=== PATIENT | male | born 1945 | race Caucasian/White ===

== ENCOUNTER 2017-06-03 17:54 | Inpatient (IN) ==
[2017-06-03 18:48] LABS: MANUAL DIFF NEEDED? NO
[2017-06-03 18:49] LABS: ALLEN TEST YES; BLOOD TYPE ARTERIAL; DRAW SITE R RADIAL; METHB 1.3 % (0.0-1.5); O2(CT) 19.3 mL/dL (15.0-23.0); PCO2(98.6) 33 mmHg (35-45); PO2(98.6) 58 mmHg (60-100); SAMPLE BLOOD; SAO2 94.2 % (95.0-100.0); pH(98.6) 7.44 (7.35-7.45)
[2017-06-03 19:06] LABS: BASO% 0.4 % (0.0-0.8); EOS# 0.06 X1000 (0.0-0.7); EOS% 0.8 % (0.0-10.0); HEMATOCRIT 44.3 % (42.0-52.0); HEMOGLOBIN 14.8 g/dL (14.0-18.0); IMM GRAN# 0.03 X1000 (0.0-0.04); IMM GRAN% 0.4 % (0.0-0.5); LYMPH# 0.39 X1000 (1.2-3.4); LYMPH% 4.9 % (20.5-51.1); MCH 29.2 PG (27-31); MCHC 33.4 g/dL (33-37); MCV 87.5 FL (81-99); MONO% 8.8 % (1.7-9.3); MPV 11.1 FL (7.4-10.4); NEUT% 84.7 % (42.2-75.2); PLT 149 X1000 (130-400); RBC 5.06 XMIL (4.7-6.1)
--- NOTE | 2017-06-03 19:13 | Diag Imaging Result Doc PS360 ---
CT HEAD W/O CONTRAST - 06/03/2017 INDICATION: AMS TECHNIQUE: A CT dose reduction protocol was used. COMPARISON: None FINDINGS: There is some mild periventricular white matter chronic microvascular disease. No intracranial mass or hemorrhage. The skull is intact. The sinuses, mastoids, and middle ears are clear. IMPRESSION: No acute disease. Electronically signed by Maurice Narayanan 06/03/2017 7:11 PM
--- NOTE | 2017-06-03 19:15 | Diag Imaging Result Doc PS360 ---
CHEST-2 VIEWS - 06/03/2017 INDICATION: ams TECHNIQUE: COMPARISON: None FINDINGS: Lung volumes are critically low with central crowding. No obvious infiltrates. There is mild cardiomegaly and pulmonary vascular congestion. No pneumothorax or pleural effusion. IMPRESSION: Nonspecific findings. Electronically signed by Maruice Narayanan 06/03/2017 7:12 PM
[2017-06-03 19:19] LABS: ALBUMIN 3.9 g/dL (3.5-5.0); CALCIUM 9.3 mg/dL (8.8-10.2); POTASSIUM 4.9 mmol/L (3.5-5.1); TOTAL BILIRUBIN 0.44 mg/dL (0.20-1.00); TOTAL PROTEIN 7.1 g/dL (6.3-8.3)
[2017-06-03] MEDS ORDERED: NS 1,000 ML IV ONE (19:27)
--- NOTE | 2017-06-03 19:29 | PROVIDER DOCUMENTATION ---
This chart was entered by Lenora Parr Scribe, acting as scribe for Real Cox MD. HPI-General Adult - General Chief Complaint: Altered Mental Status Stated Complaint: WEAKNESS, AMS Time Seen by Provider: 06/03/17 18:21 Source: patient, family Allergies/Adverse Reactions: Patient Allergies Allergy/AdvReac Type Severity Reaction Status Date / Time No Known Allergies Allergy Verified 06/03/17 18:56 Home Medications: Home Medication List Medication Instructions Recorded Confirmed Last Taken Type ATORVAstatin [Lipitor] 40 mg PO DAILY 10/16/14 06/03/17 06/02/17 20:00 History Glimepiride [Amaryl] 4 mg PO BID #60 tablet 10/16/14 06/03/17 06/02/17 20:00 Rx Linagliptin [Tradjenta] 5 mg PO DAILY 10/16/14 06/03/17 06/02/17 20:00 History Metformin HCl [Metformin HCl ER] 1,500 mg PO DAILY 10/16/14 06/03/17 06/02/17 20 :00 History Valsartan/Hydrochlorothiazide 1 each PO DAILY 10/16/14 06/03/17 06/02/17 20:00 History [Valsartan-Hctz 160-12.5 mg Tab] Insulin Detemir [Levemir Flextouch] 100 unit SQ HS 06/03/17 06/03/17 06/02/17 20 :00 History Lansoprazole [Prevacid] 30 mg PO DAILY 06/03/17 06/03/17 06/02/17 20:00 History Pioglitazone [Actos] 15 mg PO DAILY 06/03/17 06/03/17 06/02/17 20:00 History - History of Present Illness -Gen Adult Nature of Presenting Problems: 71 Y/O M presents to ED with Altered Mental Status. Pt states that today around 1:30 pm pt began having abnormal gait and unable to walk. Pt states that that he was in the heat for about 6 hours today working in the yard. Has a hx of abnormal gait states he shuffles walk. Pt states N earlier no longer in the ED. Pt denies all symptoms of headache, SOB, V, D, Chest Pain, ABD pain. Pt doesn't know the year, month, children's ages and the amount of children he has. Pt states she tested his glucose at home and it was in the 200s. Aditional hx is that pt has been incontinent of urine today which is new Location of Pain/Injury: reports: generalized Pain Radiation: reports: no radiation Quality of Pain: reports: none Severity: reports: moderate Onset/Duration: reports: this afternoon Timing: reports: still present, changing over time, getting worse Context/Activities at Onset: reports: moderate activity Associated Symptoms: reports: nausea, trouble walking. denies: arm pain, back/ neck pain, chest pain, diarrhea, dizziness, fatigue, fever/chills, genitourinary problems, headaches, muscle aches, rash, seizure Review of Systems - Adult - REVIEW OF SYSTEMS - ADULT Constitutional: denies: chills, fever Eyes: reports: no symptoms reported Ears, Nose, Mouth & Throat: reports: no symptoms reported Cardiovascular: denies: chest pain Respiratory: denies: cough, shortness of breath Gastrointestinal: reports: nausea. denies: abdominal pain, diarrhea, vomiting Genitourinary: reports: no symptoms reported Musculoskeletal: denies: bone pain, back pain Integumentary: reports: no symptoms reported Neurological: reports: other (abnormal gait.). denies: dizziness/vertigo, headache/migraines, numbness, seizure Psychiatric: reports: no symptoms reported Endocrine: reports: no symptoms reported Hematologic/Lymphatic: reports: no symptoms reported Allergic/Immunologic: reports: no symptoms reported All Other Systems: Reviewed and Negative Past History - Adult - PAST MEDICAL HISTORY-ADULT Review of Records: reports: Old Records Reviewed, Nursing Assessment Review, Medications Reviewed, Social history reviewed & non-contributory. Major Childhood Illnesses: reports: denies history Cardiovascular: reports: denies history Respiratory: reports: denies history Gastrointestinal: reports: GERD Obstetrical/Gynecological: reports: denies history Genitourinary: reports: denies history Musculoskeletal: reports: denies history Neurological: reports: denies history Endocrine/Immune: reports: Diabetes Other Conditions: reports: denies history - FAMILY HISTORY Family History: reviewed, not pertinent - SOCIAL HISTORY Smoking: non-smoker Substance Use: none/never Alcohol Use Frequency: never Physical Exam-General - CONSTITUTIONAL General Appearance: alert, no apparent distress - EYES Eyes: PERRL/EOMI, pink conjunctivae - HEAD, EARS, NOSE, MOUTH & THROAT HENMT: moist mucous membranes, normal ENT inspection, TMs normal, pharynx normal - NECK Neck: full range of motion, supple, normal inspection - RESPIRATORY Respiratory: lungs clear - CARDIOVASCULAR Cardiovascular: no murmur, tachycardia - GASTROINTESTINAL (ABDOMEN) Abdominal Exam: non tender, soft - LYMPHATIC Lymphatic: no adenopathy - MUSCULOSKELETAL Back Exam: no CVA tenderness, no vertebral tenderness Extremity: non-tender, other (bilateral weak LE motor strength) - SKIN Integumentary: normal turgor - NEUROLOGIC Neurologic: abnormal gait, motor weakness. negative: EOM palsy, facial droop, focal weakness - PSYCHIATRIC Psych/Mental Status: normal mood/affect, oriented x 3 Progress - PLAN OF CARE/RESULTS Progress/Plan/Lab Results: Vital Signs - 8 hr 06/03/17 18:17 Temperature 99.9 F H Pulse Rate 114 H Respiratory Rate 27 H Blood Pressure 197/97 O2 Sat by Pulse Oximetry 95 Orders Category Date Time Status Cardiac Monitoring DIRECTED Care 06/03/17 18:31 Active Finger Stick Blood Sugar (ED) DIRECTED Care 06/03/17 18:31 Active Saline Loc NOW Care 06/03/17 18:31 Active CHEST-2 VIEWS [RAD] Stat Exams 06/03/17 18:[address] HEAD W/O CONTRAST [CT] Stat Exams 06/03/17 18:32 Ordered ABG [RESP] Routine Lab 06/03/17 18:31 Ordered ALCOHOL BLOOD Stat Lab 06/03/17 18:31 Uncollected AMMONIA [CHEM] Stat Lab 06/03/17 18:32 Uncollected CBC WITH ELECTRONIC DIFF [HEME] Stat Lab 06/03/17 18:31 Uncollected CK PROFILE [SP CHEM] Stat Lab 06/03/17 18:31 Uncollected CK TOTAL [CHEM] Stat Lab 06/03/17 18:33 Uncollected COMPREHENSIVE METABOLIC PANEL [CHEM] Stat Lab 06/03/17 18:31 Uncollected LACTATE, PLASMA [CHEM] Stat Lab 06/03/17 18:31 Uncollected PROTIME WITH INR [COAG] Stat Lab 06/03/17 18:31 Uncollected PTT [COAG] Stat Lab 06/03/17 18:31 Uncollected TROPONIN T Stat Lab 06/03/17 18:31 Uncollected URINALYSIS W/POSS RFLX CULT-1 [URINALYSIS] Stat Lab 06/03/17 18:31 Uncollected URINE DRUG SCREEN Stat Lab 06/03/17 18:31 Uncollected Pulse Oximetry Stat Oth 06/03/17 18:31 Active EKG [EKG] Stat Ther 06/03/17 18:31 Ordered Result Diagrams: 06/03/17 18:34 06/03/17 18:34 - EKG 1 Time of EKG reading by physician:: 18:38 EKG Read and Signed by:: Real Cox EKG Interpretation (*Must complete 3 of following elements*): Abnormal Rate: 115 Rhythm: Sinus Tachycardia with 1st degree AV block [place]: right (rightward) Comments: Abnormal ECG, Nonspecific abnormality - XRAY 1 XRAY Study: Chest Impression: Normal XRAY Interpretation: NAD - CT/MRI 1 CT Study: Head Impression: Normal CT Results: NAD Departure - Departure Date of Disposition Decision: 06/03/17 Time of Disposition Decision: 19:28 DIAGNOSIS: Altered mental status, unspecified Qualifiers: Altered mental status type: disorientation Qualified Code(s): R41.0 - Disorientation, unspecified Disposition: ADMITTED INPATIENT 09 Certified Medical Emergency: Emergent Condition: Fair - Critical Care Note This patient required my direct & personal management of CC.: No Attestation - Physician/ SIL Attestation Patient care was provided by Advanced Practice Provider:: No The physician spent face to face time with patient:: Yes Advanced Practice Provider documentation review:: Supervising physician onsite and consulted in the evaluation and care of this patient. The physician did have a face to face encounter with the patient. This chart was documented by the indicated scribe, (Lenora Parr Scribe) and accurately reflects the services I performed and decisions made by me, Real Cox MD, as attested by the provider's signature.
[2017-06-03 19:48] LABS: INR 1.04; PROTIME 10.9 Seconds (9.2-11.7); PTT 27.6 Seconds (22.0-36.0)
[2017-06-03] MEDS ORDERED: LOPRESSOR IV ONE (20:37)
[2017-06-03 21:22] LABS: URINE CULTURE NEEDED? NO; URINE MICRO REVIEW NEEDED? NO; URINE SOURCE CATH
[2017-06-03 21:28] LABS: BILIRUBIN URINE NEGATIVE (NEGATIVE); BLOOD URINE SMALL (NEGATIVE); COLOR YELLOW; GLUCOSE URINE 100 mg/dL (NEGATIVE); LEUKOCYTES URINE NEGATIVE (NEGATIVE); NITRITE URINE NEGATIVE (NEGATIVE); PH URINE 6.5; PROTEIN URINE 100 mg/dL (NEGATIVE); SP GRAVITY URINE 1.012; TURBIDITY URINE CLEAR (CLEAR); UROBILINOGEN URINE NORMAL (NORMAL)
[2017-06-03 21:29] LABS: UR EPITHELIAL CELLS <10 /HPF (<10); URINE BACTERIA NEGATIVE /HPF; URINE RBC <10 /HPF (<10); URINE WBC <10 /HPF (<10)
[2017-06-03] MEDS ORDERED: LABETALOL IV ONE (22:04)
[2017-06-03 22:05] LABS: UR AMPHETAMINES QUAL NONE DETECTED (NONE DETECT); UR BARBITUATES QUAL NONE DETECTED (NONE DETECT); UR BENZODIAZEPIN QUAL NONE DETECTED (NONE DETECT); UR CANNABINOIDS QUAL NONE DETECTED (NONE DETECT); UR COCAINE QUAL NONE DETECTED (NONE DETECT); UR METHADONE QUAL NONE DETECTED (NONE DETECT); UR OPIATES QUAL NONE DETECTED (NONE DETECT); UR OXYCODONE QUAL NONE DETECTED (NONE DETECT); UR PCP QUAL NONE DETECTED (NONE DETECT)
--- NOTE | 2017-06-03 22:43 | HISTORY AND PHYSICAL ---
PRIMARY CARE PROVIDER: Rodriguez Rasmussen MD NEUROLOGIST: Dr. Ronald Stapleton in [place]. CHIEF COMPLAINT: Altered mental status. HISTORY OF PRESENT ILLNESS: A 71-year-old, male presents to the emergency room today after having acute mental status change around 1:30 p.m. Per the , he has had an abnormal gait, somewhat stooped and shuffling for some time now. He has reportedly been worked up for Parkinson's and that was excluded per Dr. Stapleton in [place]. But today he began having increased difficulty and weakness in his bilateral lower extremities and was unable to ambulate at that point. The patient's stated that he was in the heat for about 6 hours today working in the yard. He had some nausea with one episode of vomiting on the way to the emergency room. He denies chest pain, headache, shortness of breath, diarrhea or abdominal pain. He is oriented only to person. He does know his family members. He has also had some urine incontinence today, which is new. A CT scan was completed in the emergency room which was read as no acute disease. Chest x-ray also no acute disease. He did have an EKG completed which showed sinus tachycardia with a first-degree AV block, and a right axis deviation, rate in the 120s. The patient is not known to have tachycardia. Past medical history includes diabetes mellitus, hypertension , hyperlipidemia. He will be admitted to CICU for further evaluation and treatment. PAST MEDICAL HISTORY: 1. See HPI. 2. Brain bleed in 2009. PREVIOUS SURGICAL HISTORY: Right arm pin at a very young age related to break. SOCIAL HISTORY: Lives at home with his . Denies alcohol, tobacco or illicit drug use or abuse. FAMILY HISTORY: Dad had dementia. Mother had diabetes mellitus. ALLERGIES: No known drug allergies. HOME MEDICATIONS: 1. Valsartan/Hydrochlorothiazide combo drug 160/12.5, 1 p.o. daily. 2. Metformin 1500 mg p.o. daily. 3. Lipitor 40 mg p.o. daily. 4. Tradjenta 5 mg p.o. daily. 5. Amaryl 4 mg p.o. b.i.d. 6. Levemir 100 units subcutaneously at bedtime. 7. Prevacid 30 mg p.o. daily. 8. Actos 15 mg p.o. daily. REVIEW OF SYSTEMS: Fourteen point review of systems conducted with the patient and his . Pertinent positives listed above in the HPI. All other systems were reviewed and found to be negative. PHYSICAL EXAMINATION: VITAL SIGNS: Temperature 99.9 degrees, pulse 127, respirations 22, blood pressure 179/107, oxygen saturation 96% on room air. GENERAL: A pleasantly confused 71-year-old male sitting in the ER stretcher. Oriented to person. Does know is family's name. Disoriented to situation and time. Does realize that he is in the hospital. He is in no acute distress at this time. Family at bedside appears to be very supportive. HEENT: Head is atraumatic, normocephalic. Myosin sign noted. Extraocular eye movements intact. Pupils are equal, round, reactive to light. Sclerae is anicteric. Conjunctivae is pink. Oral mucosa is dry. NECK: Supple. No JVD. No thyromegaly. Trachea is midline. CARDIAC: S1-S2 appreciated, sinus tachycardia. No murmurs, gallops, rubs. LUNGS: Clear to auscultation bilaterally. No rhonchi, wheezes or rales. ABDOMEN: Protuberant soft, nondistended, nontender. Bowel sounds hyperactive, all 4 quadrants. No pulsatile mass. No organomegaly. EXTREMITIES: No clubbing, cyanosis, or edema. 2+ pedal pulses bilaterally. MUSCULOSKELETAL: 3/5 upper extremity strength, with discoordinated movements bilateral lower extremities, 2/5 strength. Unable to hold against gravity. GENITOURINARY: No bladder distention. Otherwise deferred. NEUROLOGICAL: Oriented to person. Disoriented to time and situation. Somewhat oriented to place. Aware that he is in the hospital. Positive myosin sign. Stooped, shuffling gait. Bilateral lower extremity weakness. Cranial nerves 2-12 otherwise appear to be intact. SKIN: Warm, dry and intact. No acute lesions or rash. DIAGNOSTIC DATA: CT of the head and chest x-ray NAD. LABORATORY DATA: WBC within normal limits. Coagulase within normal limits. ABG: PH 7.44, pCO2 33, PO2 58, bicarb 24, this was on room air. Sodium 133, potassium 4.9, chloride 96, carbon dioxide 25, BUN 16, creatinine 1.8, glucose 176, CK and troponins negative. Serum alcohol negative. UA and UDS are pending. ASSESSMENT AND PLAN: 1. Cerebrovascular accident with versus parkinsonism. Patient has several of the classic characteristics of Parkinson's disease despite having this ruled out by Neurology in [place]. I believe re-evaluation is appropriate at this time. A CT scan of the head was negative. However, the acute changes happened today. CT is known to not pickup acute intracranial events within the last 24 hours. We will order MRI of for a.m. , echocardiogram and carotid ultrasound. Consult Jarad Lala III, MD. 2. Supraventricular tachycardia of unknown etiology. The patient is not on a beta be or calcium channel be. Does not have a history of tachycardia. We will give fluid bolusing and metoprolol 5 mg in the emergency room. Echocardiogram in a.m. The patient will be placed on CICU for cardiac monitoring. Continue normal saline at 100 mL an hour. Check TSH level. 3. Hypoxia, with no history of chronic obstructive pulmonary disease or lung disease. This along with the supraventricular tachycardia is suspicious for possible pulmonary embolism. We will place the patient on oxygen per protocol. Check D-dimer. Check lower extremity ultrasound to rule out deep venous thrombosis. Patient's creatinine is elevated so a computed tomography angiogram cannot be performed. Recommend a V/Q scan in a.m. if patient is still a candidate after further testing. 4. Acute kidney injury on chronic kidney disease, stage 3a. The patient was out in the sun and seems to be somewhat dehydrated with poor skin turgor. 1 L bolus of normal saline was given in the emergency room. We will give normal saline at 100 mL an hour. 5. Hypertension. Continue home medication. 6. Hyperlipidemia. Continue home medication. 7. Diabetes mellitus type 2, now insulin dependent. We will place on moderate dose sliding scale and hold all oral antihyperglycemics as he is on Actos and sulfonylurea which are known there will make people hypoglycemic, especially in the face of acute kidney injury or chronic kidney disease. 8. Nausea and vomiting. This was only x1 episode. The patient was noted as having hyperactive bowel sounds. However, he did not complain of nausea. We will add Zofran to his medication profile. Further recommendations per patient clinical course. Dictated by LISA Tripathi for Josh Nguyen MD Seen, examined and discussed case with ELECTROMYOGRAPHIC TECHNICIAN. cc: LISA Tripathi MD Gregory S. Cheatham, MD David Greer, MD MTDD
[2017-06-03] MEDS ORDERED: ZOFRAN IV PRN (22:56)
[2017-06-03] MEDS: HUMALOG SUBQ SCH (22:56)
[2017-06-03] MEDS: HEPARIN SUBQ SCH (22:56)
--- NOTE | 2017-06-03 23:41 | ED EKG INTERP ---
This chart was entered by Lenora Parr Scribe, acting as scribe for Real Cox MD. EKG Interpretation - EKG Time of EKG reading by physician:: 20:08 EKG Read and Signed by:: Real Cox EKG Interpretation (*Must complete 3 of following elements*): Abnormal Rate: 123 Rhythm: Sinus Tachycardia ST Wave: non-specific ST changes Comments: Abnormal ECG, Attestation - Physician/ SIL Attestation Patient care was provided by Advanced Practice Provider:: No The physician spent face to face time with patient:: Yes Advanced Practice Provider documentation review:: Supervising physician onsite and consulted in the evaluation and care of this patient. The physician did have a face to face encounter with the patient. This chart was documented by the indicated scribe, (Lenora Parr Scribe) and accurately reflects the services I performed and decisions made by me, Real Cox MD, as attested by the provider's signature.
[2017-06-04] MEDS: NS 1,000 ML IV SCH ×3 (01:00→18:06)
[2017-06-04 06:35] LABS: BASO% 0.3 % (0.0-0.8); EOS# 0.01 X1000 (0.0-0.7); EOS% 0.1 % (0.0-10.0); HEMATOCRIT 44.5 % (42.0-52.0); HEMOGLOBIN 14.9 g/dL (14.0-18.0); IMM GRAN# 0.03 X1000 (0.0-0.04); IMM GRAN% 0.4 % (0.0-0.5); LYMPH# 0.39 X1000 (1.2-3.4); LYMPH% 4.9 % (20.5-51.1); MANUAL DIFF NEEDED? YES; MCH 29.2 PG (27-31); MCHC 33.5 g/dL (33-37); MCV 87.3 FL (81-99); MONO# 0.56 X1000 (0.11-0.59); MONO% 7.1 % (1.7-9.3); MPV 11.2 FL (7.4-10.4); NEUT% 87.2 % (42.2-75.2); PLT 143 X1000 (130-400)
[2017-06-04 06:54] LABS: LYMPHS 4 % (21-51); MONO 6 % (1-9)
[2017-06-04 07:04] LABS: ALBUMIN 4.1 g/dL (3.5-5.0); CALCIUM 8.6 mg/dL (8.8-10.2); TOTAL BILIRUBIN 0.53 mg/dL (0.20-1.00); TOTAL PROTEIN 6.9 g/dL (6.3-8.3)
--- NOTE | 2017-06-04 07:30 | EKG Report ---
Test Performed on : 06/04/2017 06:32:34 AM Test Reason : chest pain Blood Pressure : / mmHG Vent. Rate : 100 BPM Atrial Rate : 100 BPM P-R Int : 238 ms QRS Dur : 092 ms QT Int : 340 ms P-R-T Axes : 026 092 134 degrees QTc Int : 438 ms Sinus rhythm. with 1st degree AV block. Rightward axis Nonspecific ST abnormality Abnormal ECG When compared with ECG of 03-JUN-2017 20:08, ST now depressed in high-lateral 1 and AVL T wave inversion now evident in high-lateral leads 1 and AVL Confirmed by John Gore DO ([id number]) on 06/07/2017 12:25:40 PM
--- NOTE | 2017-06-04 10:11 | Diag Imaging Result Doc PS360 ---
EXAM: MRI BRAIN W/O CONTRAST HISTORY: r/o cva TECHNIQUE: MRI of the brain; T1 sagittal and axial, T2, FLAIR, DWI axial, gradient echo coronal. COMMENT: There are no previous MRI studies available for comparison. There is a CT from 06/03/2017. Numerous punctate subcortical white matter hyperintensity lesions are present on the T2 and FLAIR images as well as confluent periventricular white matter hyperintensity particularly in the frontal lobes. There is no evidence of bleed or mass effect. There is no evidence for restricted diffusion. IMPRESSION: Extensive chronic microvascular white matter disease. No definite evidence of acute disease. Electronically signed by Jcarlos Vu 06/04/2017 10:09 AM
[2017-06-04] MEDS: HUMALOG SUBQ SCH ×4 (11:22→20:53)
[2017-06-04] MEDS: HEPARIN SUBQ SCH ×3 (11:22→20:53)
[2017-06-04] MEDS: DIOVAN PO SCH (11:25)
[2017-06-04] MEDS: PROTONIX PO SCH (11:25)
[2017-06-04] MEDS: HYDROCHLOROTHIAZIDE PO SCH (11:25)
[2017-06-04] MEDS: TYLENOL PO PRN (12:04)
--- NOTE | 2017-06-04 14:24 | CONSULTATION ---
DATE OF CONSULTATION: 06/04/2017 SUBJECTIVE: Mr. Yadav is 71 years old. History is taken from his attentive . He is not able to provide valid history because of his baseline cognitive impairment. reports that he had personality change and slight memory deficit following head injury with "brain bleed" managed conservatively without surgery in 2009. Memory has been failing more rapidly in the last 6 months. He has had unsteady gait for about 3 years. (She demonstrates typical apractic gait while giving this report.) He has short shuffling steps, stooped shoulders, trouble with turns. Some days are worse than others. Yesterday, he seemed unable to stand or walk at all. She has never seen him have this appearance before. She did not notice any focal features. Today, she believes he has been little bit tremulous in the hands, but tremor has never been noted before today. He has not been treated with dopaminergic or cholinergic medicines, by her report. He is followed by Dr. Ronald Stapleton, in [place], with appointment coming up in less than 2 months. DIAGNOSTICS: Workup here includes noncontrast CT, showing nothing remarkable for age. Brain MRI today shows typical age-related micro-ischemic change and a little bit of atrophy, but nothing focal or acute. His lab work shows mild hyponatremia, mildly elevated blood sugars, nothing else remarkable. PHYSICAL EXAMINATION: Vital signs: Heart rate has ranged from the 80's to 120' s. Systolic blood pressures have ranged from 130's to 210's. Tachycardia is not new. General: On exam, Mr. Yadav is awake, alert, attentive. Neurologic: He answers questions appropriately, but often incorrectly. He was not well-oriented. I did not test his cognitive function thoroughly. Speech is not dysarthric. Voice is strong, not Parkinsonian. Language function is intact. Remote memory is fair. Head shows no skull defect. Neck is supple, without meningismus. Strength is normal in the arms and legs. He did well on [id number] testing bilaterally. I did not test his gait. He has a stocking pattern of sensory loss to pinprick and light touch testing over the legs. Reflexes are absent at the ankles, 1+ symmetrically at the wrists. He has full lateral eye movements and only slightly limited upgaze, typical for age. There is a paucity of facial expression, but that is not markedly prominent. Glabellar sign is present. IMPRESSION: 1. 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 2. More prominent cognitive decline in the last several months, continuing to progress. 3. Typical apractic gait. Progressing over 3 years, unable to stand and walk yesterday. 4. Report of tremulousness today, but no classifiable tremor present on exam now. Specifically, there is no resting tremor. PLAN: I discussed at length with the distinction between idiopathic Parkinson's disease and other Parkinsonian syndromes. I suspect he has the latter. We might consider cautious trial with dopaminergic medicine, and I discussed with the potential for side effects , including psychosis and hallucination. Cholinesterase inhibitor trial would also be reasonable, but will require longer time to assess. The clinical picture is not typical of normal- pressure hydrocephalus, and the imaging findings are also not typical. When he is back to baseline, LP for large volume cerebral spinal fluid drainage might be considered. I suspect this is a baseline cognitive impairment syndrome, which predisposes him to more prominent encephalopathy associated with relatively minor toxic or metabolic disturbance. I hope he will continue stable course and improve. He is likely a candidate for rehab when ready to leave the hospital. He can keep followup with Dr. Stapleton. Thanks for asking me to see Mr. Yadav. cc: MD ALINA Shea III
--- NOTE | 2017-06-04 15:43 | ECHO REPORT ---
ORDER DATE: 06/04/2017 ECHOCARDIOGRAPHIC MEASUREMENTS: 1. Interventricular septum 1.1. 2. Left ventricular posterior wall 1.1. 3. Diastolic diameter 4.4. 4. Left atrium 4.1. 5. Aorta 3.6. FINDINGS: 1. Aortic valve leaflets are trileaflet. Pulmonic valve was normal. There was trace pulmonary regurgitation. Mitral valve was normal. Tricuspid valve was normal. Normal left ventricular cavity size. Estimated ejection fraction of 60-65%. 2. By Doppler studies, there is no aortic stenosis or regurgitation. There is mild mitral regurgitation. Trace to mild tricuspid regurgitation. Peak velocity across the tricuspid valve was less than 2 m/sec. 3. There is no pericardial effusion or obvious intracardiac mass or thrombus seen. cc: MD Luis Calles CRNP
--- NOTE | 2017-06-04 16:08 | Diag Imaging Result Doc PS360 ---
EXAM: CT THORAX W/O CONTRAST HISTORY: cough TECHNIQUE: CT of the chest without contrast with dose reduction (clarity.) COMMENT: There are no previous studies available for comparison. Some patient motion artifact is present. There are small stones layering dependently in the gallbladder. There are granulomata in the spleen and both lower lobes. There are calcified nodes in the left hilum. No significant adenopathy is present and there are no abnormal fluid collections. There is some fibrosis or atelectasis posteriorly in the right lower lobe. There is also apparent atelectasis or fibrosis in the superior segment on the left side. IMPRESSION: Granulomatous changes and atelectasis/fibrosis as described. No significant acute pulmonary parenchymal disease otherwise. Cholelithiasis. Electronically signed by Jcarlos Vu 06/04/2017 4:05 PM
--- NOTE | 2017-06-04 16:09 | Diag Imaging Result Doc PS360 ---
EXAM: US RENAL 2 (RETROPER) COMPLETE HISTORY: kathie/arf TECHNIQUE: Renal ultrasound COMMENT: The right kidney is 10.6 x 5.2 x 5.4 cm the left is 11.4 x 4.3 x 5.2 cm. No evidence of hydronephrosis is present. There is a parapelvic cyst in the lower pole of the left kidney measuring 18 mm in diameter. The urinary bladder is unremarkable. There are no masses or stones demonstrated. IMPRESSION: No evidence of obstructive uropathy. Electronically signed by Jcarlos Vu 06/04/2017 4:07 PM
--- NOTE | 2017-06-04 17:18 | PROGRESS NOTE ---
DATE: 06/04/2017 SUBJECTIVE: The patient still looks somewhat confused and altered and slow, but he knows where he is now. He knows his name and date of . He reports mild headache. No nausea or vomiting. OBJECTIVE: Vital Signs: Temperature 100.6 degrees, pulse 86, respiratory 16, blood pressure 172/101. O2 saturation 96% on room air. General: This is a 71-year-old, chronically ill-looking and frail male lying in bed in no acute distress. HEENT: Head is normocephalic, atraumatic. Anicteric sclerae and pale conjunctivae. Mucous membranes dry. Neck supple. No JVD noted. No carotid bruits. No lymphadenopathy. No thyromegaly. Cardiovascular: S1 and S2 heard. No murmurs, gallops, or rubs. Regular rate and rhythm. Respiratory clear bilaterally to auscultation. No work of breathing or using accessory muscles. Abdomen soft, nontender to palpation. Nondistended. Bowel sounds present. No organomegaly. Extremities: No clubbing, cyanosis, or edema. Peripheral pulses present in both legs. Neurologic. Patient is kind of slow, disoriented to time. There is bilateral lower extremity weakness. He does follow commands. LABORATORY DATA: 1. The CBC is completely unremarkable, as well as the BMP, which basically shows creatinine of 1.8, similar when compared with yesterday. 2. Urinary tract infection. The urinalysis is almost normal. ASSESSMENT AND PLAN: 1. CVA versus Parkinsonism. 2. The patient has been admitted to the hospital for a change in mental status. Initially, we thought it was a stroke. MRI ruled out that condition. The patient has been evaluated by Dr. Lala, and he thinks that this patient has parkinsonism. At this point, he might consider a cautious trial of dopaminergic medicine. 3. Supraventricular tachycardia of unknown origin. The patient is on beta-be or calcium channel be. At this point, we are going to continue with metoprolol. We are going to check the results of the echocardiogram. 4. Hypoxia. We suspected pulmonary embolism because the x-ray was high. I think we may need to do a V/Q scan to see if that explains why the patient has spiked fever of 100.2 today. We will see what it shows. 5. Ohusf-iy-kjyxuez kidney disease, stage 3. Apparently, as per family they know that this has some degree of renal dysfunction. In any case, he has been seen by a urologist sometime ago. I do not think this patient needs to have a V/Q scan yet. I guess this most probably is acute- on-chronic kidney disease. If the creatinine continues to get worse, we will consult Dr. Davila. 6. Hypertension. We will continue home medications. 7. Hyperlipidemia. We will continue home medications. 8. Diabetes mellitus, type 2. We will continue with sliding scale insulin. 9. Nausea and vomiting. That condition is resolved. cc: Gianfranco Montanez MD
[2017-06-04] MEDS: LIPITOR PO SCH (20:53)
[2017-06-05] MEDS: NS 1,000 ML IV SCH ×2 (04:04→17:02)
[2017-06-05] MEDS: TYLENOL PO PRN (04:05)
[2017-06-05] MEDS: HEPARIN SUBQ SCH ×3 (05:58→21:27)
[2017-06-05] MEDS: HUMALOG SUBQ SCH ×5 (05:58→21:32)
[2017-06-05] MEDS: DIOVAN PO SCH (08:41)
[2017-06-05] MEDS: PROTONIX PO SCH (08:41)
[2017-06-05] MEDS: HYDROCHLOROTHIAZIDE PO SCH (08:41)
[2017-06-05 08:51] LABS: MANUAL DIFF NEEDED? NO
[2017-06-05 08:59] LABS: BASO% 0.3 % (0.0-0.8); EOS# 0.09 X1000 (0.0-0.7); EOS% 0.9 % (0.0-10.0); HEMATOCRIT 42.2 % (42.0-52.0); HEMOGLOBIN 14.2 g/dL (14.0-18.0); IMM GRAN# 0.04 X1000 (0.0-0.04); IMM GRAN% 0.4 % (0.0-0.5); LYMPH# 0.76 X1000 (1.2-3.4); LYMPH% 7.8 % (20.5-51.1); MCH 29.3 PG (27-31); MCHC 33.6 g/dL (33-37); MONO% 13.3 % (1.7-9.3); NEUT% 77.3 % (42.2-75.2); PLT 137 X1000 (130-400); RBC 4.85 XMIL (4.7-6.1)
[2017-06-05] MEDS ORDERED: COREG PO SCH (09:00)
[2017-06-05 09:18] LABS: CALCIUM 8.9 mg/dL (8.8-10.2); POTASSIUM 4.6 mmol/L (3.5-5.1)
[2017-06-05] MEDS: LOPRESSOR PO SCH ×2 (10:22→21:27)
--- NOTE | 2017-06-05 10:35 | PROGRESS NOTE ---
DATE: 06/05/2017 SUBJECTIVE: Patient's mentation continues to improve. He is much better and according to family who is at bedside, he is almost close to his baseline. OBJECTIVE: Vital Signs: Temperature 98.2 degrees, heart rate 78, respiratory rate 20, blood pressure 146/85, O2 saturation 97% on room air. General Examination: This is a 71-year-old, chronically ill-looking, male, lying in bed, in no acute distress. HEENT: Head is normocephalic and atraumatic. Anicteric sclerae and pale conjunctivae. Mucous membranes moist. Neck: Supple. No JVD noted. No carotid bruits. No lymphadenopathy. No thyromegaly. Cardiovascular Examination: S1 and S2 heard. No murmurs, gallops, or rubs. Regular rate and rhythm. Respiratory Examination: Clear bilaterally to auscultation. No work of breathing or using accessory muscles. Abdomen: Soft, nontender to palpation. Bowel sounds present. No organomegaly. Extremities: No clubbing, cyanosis, or edema. Peripheral pulses present in both legs. Neurological Examination: Patient is definitely better. Mentation is better. He is following commands. He moves 4 extremities. Laboratory Data: There are no labs from today. ASSESSMENT AND PLAN: 1. Heat stroke. The patient was admitted to the hospital for a change in mental status. Initially, we thought that this was a stroke. MRI has rule out this condition already. At this point, we will continue with intravenous fluids. 2. Parkinsonism syndrome. Patient has been evaluated by a neurologist, Dr. Stapleton, in [place]. He told family that the patient does not have any Parkinson's disease. Evaluated here by Dr. Lala. He thinks that he has some features of parkinsonism syndrome. In any case, we will leave to him the decision to start cautious trial of dopaminergic medicine. We will continue following recommendations from neurology. 3. Tachycardia. The heart rate is definitely better controlled with highest heart rate of 110 to 115 during the last 24 hours. Because also the blood pressure is a little bit high, I preferred to start metoprolol 25 mg by mouth 3 times per day and see how he does. Eventually, we may switch to extended release Toprol later on. 4. Hypoxia, I think that was related to keep heat stroke. Now, patient is back to normal. The patient's oxygen saturation is back to normal. Not requiring any oxygen supplementation at all since yesterday. Even though the D-dimer was slightly elevated, I do not think this patient warrants to have any further workup for any pulmonary embolism. 5. Acute on chronic kidney disease stage III. Apparently, this condition is chronic and he is at his baseline. 6. Hypertension. We will continue home medications. 7. Hyperlipidemia. We will continue home medications. 8. Diabetes mellitus type 2. The patient is on sliding scale insulin. 9. Nausea and vomiting. That condition is completely resolved. 10. Disposition. We are going to transfer this patient out of the [facility] today. cc: Gianfranco Montanez MD MTDD
--- NOTE | 2017-06-05 11:03 | PROGRESS NOTE ---
DATE: 06/05/2017 SUBJECTIVE: Mr. Yadav is sitting up this morning, bright, alert, attentive, appropriate. He carried on appropriate conversation with me. reports he was able to stand and walk with assistance of physical therapy this morning. There is nothing new neurologically. I reviewed discussion with her from yesterday that there might be consideration for cautious trial with dopaminergic and/or cholinergic medicines later, and they can follow up with Dr. Stapleton in [place] for that. I will sign off today. Thanks for asking me to see Mr. Yadav. cc: Jarad Lala III, MD
[2017-06-05] MEDS: LIPITOR PO SCH (21:27)
[2017-06-06 05:41] LABS: MANUAL DIFF NEEDED? NO
[2017-06-06 05:49] LABS: BASO% 0.4 % (0.0-0.8); EOS# 0.27 X1000 (0.0-0.7); EOS% 3.7 % (0.0-10.0); HEMATOCRIT 40.8 % (42.0-52.0); HEMOGLOBIN 13.7 g/dL (14.0-18.0); IMM GRAN# 0.02 X1000 (0.0-0.04); IMM GRAN% 0.3 % (0.0-0.5); LYMPH# 0.93 X1000 (1.2-3.4); LYMPH% 12.6 % (20.5-51.1); MCH 29.4 PG (27-31); MCHC 33.6 g/dL (33-37); MCV 87.6 FL (81-99); MONO# 0.92 X1000 (0.11-0.59); MONO% 12.4 % (1.7-9.3); MPV 11.2 FL (7.4-10.4); NEUT% 70.6 % (42.2-75.2); PLT 134 X1000 (130-400); RBC 4.66 XMIL (4.7-6.1)
[2017-06-06 06:01] LABS: CALCIUM 8.7 mg/dL (8.8-10.2); POTASSIUM 4.2 mmol/L (3.5-5.1)
[2017-06-06] MEDS: HUMALOG SUBQ SCH (06:23)
[2017-06-06] MEDS: HEPARIN SUBQ SCH (06:24)
[2017-06-06 07:55] VITALS: BP 139/79
[2017-06-06] MEDS ORDERED: ASPIRIN PO SCH (09:00)
--- NOTE | 2017-06-06 14:24 | Carotid Study ---
DATE: 06/04/2017 PROCEDURE: Carotid duplex imaging. REFERRING PHYSICIAN: Dr. Nguyen INTERPRETING PHYSICIAN: Dr. Lyon TECH: Sanjiv INDICATIONS: Altered mental status. OBSERVED DATA RIGHT LEFT Brachial Blood Pressure Carotid Pulse Bruits: Carotid/Sub DIAGRAM OF ULTRASOUND IMAGING R L RIGHT INT EXT INT EXT LEFT Blue (cm/s) Blue (cm/s) Subclavian 72/0 Subclavian 44/0 CCA Proximal 79/11 CCA Proximal 77/9 CCA Distal 90/16 CCA Distal 70/11 Bulb 55/11 Bulb 44/6 ICA Proximal 63/13 ICA Proximal 59/16 ICA Mid 73/22 ICA Mid 53/16 ICA Distal 44/16 ICA Distal 52/15 ECA 58/7 ECA 36/6 Vertebral 38/8 Vertebral 40/8 ICA/CCA Ratio 0.81 ICA/CCA Ratio 0.76 % Stenosis 0 to 39 % Stenosis 0 to 39 FINDINGS: Minimal atherosclerosis at this time does not produce a hemodynamically significant flow limiting stenosis. Both vertebral arteries were antegrade flow. PHYSICIAN INTERPRETATION: No hemodynamically significant flow limiting stenosis noted to bilateral carotid arteries. cc: MD Luis Zaidi CRNP
--- NOTE | 2017-06-06 15:10 | Extremity Venous Study ---
PROCEDURE NAME: Venous U/S Bilateral Legs - 06/03/2017 DATE OF STUDY: 06/04/2017 REQUESTING PHYSICIAN: Dr. Nguyen. INDICATION: Altered mental status. ORCHESTRA DIRECTOR: Sanjiv. PROCEDURE: Bilateral lower extremity venous duplex and color flow imaging. EQUIPMENT: [employer] E9 Ultrasound System with a 9 LD transducer. FINDINGS: Images of bilateral lower extremity venous system were obtained in both sagittal and transverse planes. Doppler was used to evaluate veins for spontaneity, phasicity, respiratory excursion, and digital augmentation. Results normal venous compression, normal venous flow. No obvious superficial or deep venous thrombosis noted. INTERPRETATION: Essentially normal bilateral lower extremity venous study. cc: MD Luis Zaidi CRNP
--- NOTE | 2017-06-07 07:44 | DISCHARGE SUMMARY ---
ADMISSION DATE: 06/03/2017 DISCHARGE DATE: 06/06/2017 CONSULTATION: Dr. Jarad Lala with Neurology. PERTINENT PROCEDURES: 1. Head CT showed no acute disease. 2. showed extensive chronic microvascular disease. No definite evidence of acute disease. 3. Echocardiogram showed an EF of 60%-65%. 4. Renal ultrasound showed no evidence of obstructive uropathy. 5. Chest CT showed granulomatosis changes and atelectasis and fibrosis. No significant acute pulmonary parenchymal disease, otherwise. DISCHARGE DIAGNOSES: 1. Cerebrovascular accident. The patient was admitted for change in mental status initially. MRI ruled out any ischemic stroke. Followed by Neurology. 2. Parkinsonian syndrome. Patient has been evaluated by the neurologist, Dr. Stapleton in [place], as well as Dr. Lala on this admission, but he has been told by Dr. Stapleton that he does not have any Parkinson's disease. Dr. Lala does feel that he has some features of Parkinsonism syndrome. He did discuss with the that there might be considerations for cautious trial with dopaminergic and/or cholinogenic medicines later, and that they can follow up with Dr. Stapleton in [place] for that. 3. Supraventricular tachycardia on admission. The patient continued with tachycardia. He was briefly placed on a beta be. Heart rate is now in the 70s, stable. 4. Hypoxia, resolved. 5. Oavqr-pb-cokowkc kidney disease, stage 3. The patient is at his baseline. 6. Hypertension. Continue home medications. 7. Hyperlipidemia. Continue statin. 8. Diabetes mellitus, type 2. Continue home medications. 9. Nausea and vomiting, completely resolved. HOSPITAL COURSE: Mr. Yadav is a 71-year-old male who carries a past medical history of a brain bleed in 2009, diabetes mellitus, hypertension, hyperlipidemia, who came to the ED after having an acute mental status change. Per his , he had an abnormal gait, somewhat stooped and shuffling for some time. He had reportedly been worked up for Parkinson's and that was excluded per Dr. Stapleton in [place]. The day of his admission, he had increased difficulty and weakness in his bilateral lower extremities and was unable to ambulate at one point. The patient's stated he had been in the heat for about 6 hours working in the yard. He had an episode of nausea, one episode of vomiting on the way to the ED. He also had some urinary incontinence. CT scan was completed and showed no acute disease. Chest x-ray: No acute disease. EKG showed sinus tachycardia with 1st degree AV block with a right axis deviation with a rate of 120s. The patient was admitted for CVA versus parkinsonism. Other consults were Neurology. Ordered an MRI that was completely negative. He was initiated on beta be for his tachycardia and moved to [facility] for close monitoring. He did have some hypoxia. He was placed on supplemental O2. They did rule a heat stroke out. Ischemic stroke was ruled out by MRI. Dr. Lala discussed with the parkinsonism syndrome and that he suspected and considered cautious trial with dopaminergic medicine and cholinesterase inhibitor trial that would also be reasonable. Neurologically, the patient improved. He has become more alert, attentive, and appropriate. He has walked with physical therapy, and Dr. Lala would like for them to follow up with Dr. Stapleton in [place]. For his tachycardia, it was controlled well with metoprolol b.i.d. He was taken off his supplemental O2. No more episodes of nausea and vomiting. Service Consultant was consulted for home health for rehab. They have chosen [facility]. He is appropriate for discharge home today to follow up with Dr. Stapleton in [place]. VITAL SIGNS: Temperature is 98.1 degrees, heart rate 77, respirations 18, blood pressure 139/79, O2 is 97% on room air. DISCHARGE DIET: Diabetic. DISCHARGE MEDICATIONS: As per Dr. Bauer. 1. Aspirin 325 mg p.o. daily. 2. Lipitor 40 mg p.o. daily. 3. Amaryl 2 mg p.o. b.i.d. 4. Levemir flex touch 42 units subcutaneous at bedtime. 5. Prevacid 30 mg p.o. daily. 6. Tradjenta 5 mg p.o. daily. 7. Lopressor 25 mg p.o. b.i.d. Hold for heart rate less than 60 or systolic blood pressure less than 100. 8. Actos 15 mg p.o. daily. 9. Valsartan hydrochlorothiazide 160, 12.5 mg tablet 1 each p.o. daily. FOLLOWUP: Mr. Yadav is being discharged home with his and [facility]. He is to follow up with Dr. Stapleton in [place], as well as his primary care physician. He can return to the ED for any worsening of symptoms. Dictated by LISA Macias for Gianfranco Montanez MD cc: MD Rodriguez Araya MD
== END 2017-06-06 11:33 | disposition home health service (06) ==
LOC: ED 17:54 → EDIPHOLD 21:56 → SUATTDRO 21:56 → 3S 06-04 15:49 → 4N 06-05 12:01
PROVIDERS: ATTEND Internal Medicine

== ENCOUNTER 2017-07-25 12:42 | Observation (INO) ==
[2017-07-25] MEDS ORDERED: ASPIRIN PO STA (13:19)
[2017-07-25] MEDS ORDERED: ZOFRAN IV ONE (13:22)
[2017-07-25] MEDS ORDERED: DILAUDID IV ONE ×2 (13:22→16:54)
--- NOTE | 2017-07-25 13:42 | Diag Imaging Result Doc PS360 ---
CHEST-2 VIEWS - 07/25/2017 INDICATION: CP TECHNIQUE: COMPARISON: 06/07/2017 FINDINGS: Lung volumes are improved but still rather low. There is some linear atelectasis at the right lung base. Stable calcified granulomas in the lung bases bilaterally and in the left hilum. No definite infiltrates. No pneumothorax or pleural effusion. Heart size is normal. IMPRESSION: No specific acute disease. Electronically signed by Maurice Narayanan 07/25/2017 1:40 PM
[2017-07-25] MEDS ORDERED: DILAUDID ONE (13:44)
[2017-07-25 13:45] LABS: MANUAL DIFF NEEDED? NO
[2017-07-25 13:50] LABS: BASO% 0.3 % (0.0-0.8); EOS# 0.09 X1000 (0.0-0.7); EOS% 0.7 % (0.0-10.0); HEMATOCRIT 44.5 % (42.0-52.0); HEMOGLOBIN 14.5 g/dL (14.0-18.0); IMM GRAN# 0.12 X1000 (0.0-0.04); LYMPH# 1.08 X1000 (1.2-3.4); LYMPH% 8.7 % (20.5-51.1); MCH 28.8 PG (27-31); MCHC 32.6 g/dL (33-37); MCV 88.5 FL (81-99); MONO% 5.6 % (1.7-9.3); MPV 10.4 FL (7.4-10.4); NEUT% 83.7 % (42.2-75.2); PLT 233 X1000 (130-400); RBC 5.03 XMIL (4.7-6.1)
[2017-07-25 13:55] LABS: PROTIME 10.5 Seconds (9.2-11.7)
--- NOTE | 2017-07-25 14:20 | EKG Report ---
Test Performed on : 07/25/2017 1:52:09 PM Test Reason : SB Blood Pressure : / mmHG Vent. Rate : 097 BPM Atrial Rate : 097 BPM P-R Int : 240 ms QRS Dur : 090 ms QT Int : 368 ms P-R-T Axes : 043 028 094 degrees QTc Int : 467 ms Sinus rhythm. with 1st degree AV block. Possible Inferior infarct (cited on or before 07-JUN-2017) Abnormal ECG When compared with ECG of 07-JUN-2017 12:49, [place] interval has increased Unconfirmed Result
[2017-07-25 14:45] LABS: ALBUMIN 3.9 g/dL (3.5-5.0); CALCIUM 9.7 mg/dL (8.8-10.2); MAGNESIUM 1.7 mg/dL (1.5-2.7); POTASSIUM 4.6 mmol/L (3.5-5.1); TOTAL BILIRUBIN 0.23 mg/dL (0.20-1.00); TOTAL PROTEIN 7.5 g/dL (6.3-8.3)
--- NOTE | 2017-07-25 15:55 | Diag Imaging Result Doc PS360 ---
EXAM: CTA THORAX AND ABDOMEN HISTORY: left flank pain r/o AAA TECHNIQUE: CT chest with intravenous contrast. Arteriogram protocol with MIP images. CT abdomen with intravenous contrast. Arteriogram protocol with MIP images. COMPARISON: 06/04/2017 FINDINGS: Chest: The lung apices are not included. No pleural effusions. No cardiomegaly. No thoracic aortic aneurysm or dissection. There are multiple calcified left hilar lymph nodes with many scattered bilateral granuloma. No enlarged mediastinal or hilar lymph nodes. Minimal scarring in the lower lungs, more pronounced on the right. No consolidation. ABDOMEN: No abdominal aortic aneurysm or dissection. The several small stones within the gallbladder. No adjacent inflammation. There is fatty infiltration of the liver. Normal spleen, pancreas, and right adrenal gland. There is thickening along the anterior and lateral left pararenal fascia beginning at the left adrenal gland and extending to the inferior border of the kidney. This measures 2.4 cm in maximum thickness. Tiny left renal cyst with a larger 4.0 cm right renal cyst. No renal stones or hydronephrosis. No bowel obstruction. IMPRESSION: Chest: 1. No thoracic aortic aneurysm or dissection 2. There is evidence of a prior granulomatous infection ABDOMEN: 1. No abdominal aortic aneurysm or dissection 2. Thickening to the left pararenal fascia likely representing hematoma. 3. Cholelithiasis 4. Fatty infiltration of the liver Electronically signed by Abdoulaye Sanchez 07/25/2017 3:53 PM
[2017-07-25 17:26] LABS: URINE MICRO REVIEW NEEDED? NO; URINE SOURCE CLEAN CATCH
[2017-07-25 17:35] LABS: BILIRUBIN URINE NEGATIVE (NEGATIVE); BLOOD URINE TRACE (NEGATIVE); COLOR YELLOW; GLUCOSE URINE >1000 mg/dL (NEGATIVE); LEUKOCYTES URINE NEGATIVE (NEGATIVE); NITRITE URINE NEGATIVE (NEGATIVE); PH URINE 5.5; PROTEIN URINE 100 mg/dL (NEGATIVE); TURBIDITY URINE CLEAR (CLEAR); UR EPITHELIAL CELLS <10 /HPF (<10); URINE BACTERIA NEGATIVE /HPF; URINE RBC <10 /HPF (<10); URINE WBC <10 /HPF (<10); UROBILINOGEN URINE NORMAL (NORMAL)
[2017-07-25] MEDS ORDERED: PHENERGAN IV ONE (18:06)
[2017-07-25] MEDS ORDERED: SODIUM CHLORIDE 0.9% INJ ONE (18:06)
[2017-07-25] MEDS ORDERED: PHENERGAN ONE (18:36)
[2017-07-25] MEDS: LEVAQUIN 500 MG in NS 100 ML IV SCH (18:52)
[2017-07-25] MEDS: HUMALOG SUBQ SCH (22:54)
[2017-07-25] MEDS: LOPRESSOR PO SCH (22:54)
[2017-07-26] MEDS: DILAUDID IV PRN ×2 (00:22→05:58)
[2017-07-26] MEDS: ZOFRAN IV PRN ×2 (00:26→05:58)
[2017-07-26] MEDS: PRILOSEC PO SCH (05:59)
[2017-07-26] MEDS ORDERED: PNEUMOVAX 23 IM ONE (06:36)
[2017-07-26] MEDS: HUMALOG SUBQ SCH ×4 (06:43→21:52)
[2017-07-26] MEDS: TRADJENTA PO SCH (08:35)
[2017-07-26] MEDS: LOPRESSOR PO SCH ×2 (08:36→21:47)
[2017-07-26] MEDS: HYDROCHLOROTHIAZIDE PO SCH (08:36)
[2017-07-26] MEDS: ACTOS PO SCH (08:36)
[2017-07-26] MEDS: DIOVAN PO SCH (08:36)
[2017-07-26] MEDS: LIPITOR PO SCH (08:36)
[2017-07-26] MEDS: SINEMET 25/100 PO SCH (08:36)
[2017-07-26] MEDS ORDERED: [UNRECOGNIZED DRUG - OTHER] PO SCH (09:00)
[2017-07-26] MEDS ORDERED: VALSARTAN PO SCH (09:00)
[2017-07-26] MEDS ORDERED: HYDROCHLOROTHIAZIDE PO SCH (09:00)
[2017-07-26] MEDS: PERCOCET-5 PO PRN ×2 (16:08→21:46)
[2017-07-26] MEDS: LEVAQUIN 500 MG in NS 100 ML IV SCH (17:57)
[2017-07-27 06:21] LABS: MANUAL DIFF NEEDED? NO
[2017-07-27] MEDS: PRILOSEC PO SCH (06:27)
[2017-07-27] MEDS: PERCOCET-5 PO PRN (06:27)
[2017-07-27] MEDS: HUMALOG SUBQ SCH (06:29)
[2017-07-27 06:36] LABS: BASO% 0.3 % (0.0-0.8); EOS% 4.5 % (0.0-10.0); HEMATOCRIT 37.4 % (42.0-52.0); IMM GRAN# 0.03 X1000 (0.0-0.04); IMM GRAN% 0.3 % (0.0-0.5); LYMPH# 0.95 X1000 (1.2-3.4); LYMPH% 10.7 % (20.5-51.1); MCH 28.8 PG (27-31); MCHC 32.1 g/dL (33-37); MCV 89.7 FL (81-99); MONO# 1.09 X1000 (0.11-0.59); MONO% 12.2 % (1.7-9.3); MPV 10.6 FL (7.4-10.4); PLT 161 X1000 (130-400); RBC 4.17 XMIL (4.7-6.1)
[2017-07-27 07:46] VITALS: BP 156/86
[2017-07-27] MEDS: TRADJENTA PO SCH (08:57)
[2017-07-27] MEDS: DIOVAN PO SCH (08:57)
[2017-07-27] MEDS: ACTOS PO SCH (08:57)
[2017-07-27] MEDS: LIPITOR PO SCH (08:57)
[2017-07-27] MEDS: SINEMET 25/100 PO SCH (08:58)
[2017-07-27] MEDS: LOPRESSOR PO SCH (08:58)
[2017-07-27] MEDS: HYDROCHLOROTHIAZIDE PO SCH (08:58)
[2017-07-27] MEDS ORDERED: FLUZONE QUAD 2017-2018 SYRINGE IM ONE (09:01)
== END 2017-07-27 10:07 | disposition home health service (06) ==
LOC: ED 12:42 → 3N 12:42
PROVIDERS: ADMIT Family Medicine; ATTEND Family Medicine